=== PATIENT | male | born 1970 | race Caucasian/White ===

== ENCOUNTER 2017-10-06 07:09 | Emergency (ER) | payer MEDICAID | END 2017-10-06 08:15 | disposition home or self-care (01) | LOC: FTE 07:09 | DX: J30.2 Other seasonal allergic rhinitis (principal) | CPT/HCPCS: 99283; Z7502 ==

== ENCOUNTER 2018-12-26 08:14 | Emergency (ER) | payer MEDICAID ==
[2018-12-26] MEDS: IBUPROFEN 600 MG TAB PO (09:24)
[2018-12-26 09:35] LABS: ADD MAN DIFF? NO
[2018-12-26 09:42] LABS: WHITE BLOOD COUNT 7.6 10^3/ul (4.8-10.8)
[2018-12-26 09:42] LABS: BASOPHIL # 0.1 10^3/ul (0.0-0.1); BASOPHILS % 0.7 % (0.0-2.0); EOSINOPHILS # 0.1 10^3/ul (0.0-0.5); EOSINOPHILS % 1.1 % (0.0-7.0); HEMATOCRIT 41.6 % (42.0-52.0); HEMOGLOBIN 14.4 g/dl (14.0-18.0); LYMPHOCYTES # 0.9 10^3/ul (0.8-2.9); LYMPHOCYTES % 12.3 % (15.0-51.0); MEAN CORPUSCULAR HEMOGLOBIN 31.6 pg (29.0-33.0); MEAN CORPUSCULAR HGB CONC 34.6 g/dl (32.0-37.0); MEAN CORPUSCULAR VOLUME 91.4 fl (82.0-101.0); MEAN PLATELET VOLUME 9.5 fl (7.4-10.4); MONOCYTE # 0.6 10^3/ul (0.3-0.9); MONOCYTES % 7.9 % (0.0-11.0); NEUTROPHIL # 5.9 10^3/ul (1.6-7.5); NEUTROPHILS % 77.6 % (39.0-77.0); PLATELET COUNT 269 10^3/UL (140-415); RED BLOOD COUNT 4.55 10^6/ul (4.70-6.10); RED CELL DISTRIBUTION WIDTH 12.8 % (11.5-14.5)
[2018-12-26 09:57] LABS: ANION GAP 8 (5-13); BLOOD UREA NITROGEN 19 mg/dl (7-20); CARBON DIOXIDE 29 mmol/L (21-31); CHLORIDE 105 mmol/L (97-110); CREATININE 0.77 mg/dl (0.61-1.24); Estimated GFR > 60 mL/min (>60); GLUCOSE 116 mg/dl (70-220); POTASSIUM 4.4 mmol/L (3.5-5.1); SODIUM 142 mmol/L (135-144)
[2018-12-26 10:43] LABS: TROPONIN-I < 0.012 ng/ml (0.000-0.120)
== END 2018-12-26 11:25 | disposition home or self-care (01) ==
LOC: FTE 08:14
DX: R00.1 Bradycardia, unspecified (principal); R53.1 Weakness
CPT/HCPCS: 36415; 80048; 84484; 85025; 93005; 99284-25